=== PATIENT | male | born 1985 | race Caucasian/White ===

== ENCOUNTER 2018-03-26 18:41 | Emergency (ER) | payer BC ==
[~2018-03-26] VITALS: Ht 180.3 cm; Wt 63.5 kg
[2018-03-26] MEDS ORDERED: NOHOMEMEDICATIONS (18:46)
[2018-03-26 19:23] VITALS: BP 114/78
--- NOTE | 2018-03-27 12:31 | EKG ---
[place] [address] ELECTROCARDIOGRAM REPORT Name: ELIJAH BUCKLEY [facility] [id number] Admission: 03/26/18 Attend Phys: Discharge: 03/26/18 Date of : 83 Report #: [id number] THIS REPORT FOR: //name// [facility] ED Test Date: 2018-03-26 Test Time: 19:05:04 Pat Name: ELIJAH BUCKLEY Department: Room: Gender: Inspector Penetrant: Estelle ROTHMAN : 1985 Requested By: Kinza Tracey Order Number: [id number] MD: Simón Rosas Measurements Intervals [place] Rate: 69 P: 74 DC: 144 QRS: 77 QRSD: 101 T: 65 QT: 380 QTc: 407 Interpretive Statements Sinus rhythm ST elev, probable normal early repol pattern No previous ECG available for comparison Electronically Signed On 03-27-2018 12:30:55 [employer] by Simón Rosas [email or web address] <ELECTRONICALLY SIGNED> By: Simón Rosas MD, MERGED WITH [facility] 03/27/18 1230 1905 1905 Simón Rosas MD, FACC /EPI
== END 2018-03-26 19:24 | disposition home or self-care (01) ==
LOC: M.ERS 18:41
DX: R55 Syncope and collapse (principal); F17.200 Nicotine dependence, unspecified, uncomplicated